=== PATIENT | male | born 1965 | race African-American/Black ===

== ENCOUNTER 2018-08-18 07:02 | Observation (INO) | payer OTHER ==
--- NOTE | 2018-08-09 13:47 | HP ---
HISTORY AND PHYSICAL: DATE OF ADMISSION/SURGERY: 08/18/18 DATE OF OFFICE VISIT: 08/05/18 SURGEON: Diane Garcia MD * (DICTATED BY MARIA DE JESUS URIOSTEGUI) PROCEDURE: Left total knee arthroplasty. CHIEF COMPLAINT: Left knee pain. HISTORY OF PRESENT ILLNESS: Mr. Crabtree is a 53-year-old gentleman with end- stage osteoarthritis of the left knee. He has failed conservative treatment and elected to proceed with a left total knee arthroplasty. PAST MEDICAL HISTORY: Hypertension. PAST SURGICAL HISTORY: ACL reconstruction of the left knee and lumbar laminectomy. CURRENT MEDICATIONS: Lisinopril 5 mg a day. ALLERGIES: No known drug allergies. FAMILY HISTORY: Denies. SOCIAL HISTORY: He is a 53-year-old gentleman, lives with his . He does not smoke or use drugs. He uses alcohol occasionally. REVIEW OF SYSTEMS: A complete 14-point review of systems is reviewed with the patient and is all negative or noncontributory. Denies history of DVT, PE, hepatitis, HIV, or anesthesia problems. PHYSICAL EXAMINATION GENERAL: He is well developed, well nourished, in no acute distress. VITAL SIGNS: He stands 5 feet and 11 inches tall, weighs 230 pounds, blood pressure is 154/94, heart rate is 80. HEENT: Normocephalic, atraumatic. NECK: Supple. No palpable lymph nodes. PULMONARY: The lungs are clear to auscultation bilaterally. CARDIAC: Regular rate and rhythm. Strong S1 and S2. ABDOMEN: Soft, nontender, and nondistended. NEUROLOGICAL: He is alert and oriented x3. MUSCULOSKELETAL: Left lower extremity: The skin is intact. There are no open wounds or abrasions. There is moderate effusion of the left knee. There is a 10- degree valgus deformity. Range of motion 5 to 120 degrees of flexion. Tenderness over the medial and lateral joint line. He is able to dorsiflex and plantar flex. Has a 2+ dorsalis pedis pulse and intact sensation. ASSESSMENT AND PLAN: Mr. Crabtree is a 53-year-old gentleman with end-stage osteoarthritis of the left knee. He has failed conservative treatment and elected to proceed with a left total knee arthroplasty. The surgery is scheduled for 08/18/[address] Garcia discussed the risks and benefits of the surgery at today's visit and all of his questions were answered. He will follow up with Dr. Garcia 2 weeks after the surgery. MARIA DE JESUS URIOSTEGUI [id number]/[facility] #: [id number] MTDD
[~2018-08-18 07:02] MED LIST: Dexamethasone TAB* 4 MG PO ONE; DiMENhydriNATE IV* 50 MG/ML VIAL IV PUSH PRN; Famotidine IV* 10 MG/ML 2 ML (20 mg) IV ONE; HYDROmorphone INJ1* 1 MG/ML SYRINGE IV PRN; Lactated Ringers 1000 ML Bag* 1,000 ML IV SCH; Naloxone* 0.4 MG/ML 1 ML VIAL IV PRN; PROCHLORPERAZINE INJ 5 MG/ML 2 ML VIAL IV PRN; Scopolamine 1.5 mg* PATCH TRANSDERM PRN; Tranexamic Acid 1,000 MG in NS 0.9% 50 ML* (outpatient use) IV SCH; fentaNYL* 50 MCG/ML 2 ML VIAL (100 MCG VIAL) IV PRN; oxyCODONE/Acetamin 5/325 MG* TAB PO PRN
[2018-08-18] MEDS ORDERED: fentaNYL* 50 MCG/ML 2 ML VIAL (100 MCG VIAL) ONE (07:42)
[2018-08-18] MEDS ORDERED: KETAMINE HCL* 50 MG/ML 10 ML VIAL ONE (07:42)
[2018-08-18] MEDS ORDERED: Midazolam* 1 MG/ML 5 ML VIAL (5 MG) ONE ×2 (07:43→08:45)
[2018-08-18] MEDS ORDERED: Propofol* 10 MG/ML 20 ML BTL ONE (07:48)
[2018-08-18] MEDS ORDERED: Lidocaine 2% PF * 5 ML VIAL ONE ×2 (07:49→12:17)
[2018-08-18] MEDS ORDERED: Ondansetron ODT TAB* 4 MG ONE (08:04)
[2018-08-18] MEDS ORDERED: Gabapentin CAP(*) 300 MG ONE (08:04)
[2018-08-18] MEDS ORDERED: ceFAZolin 2 GM PREMIX in ORs 2 GM/50 ML BAG IVPB ONE (08:05)
[2018-08-18] MEDS ORDERED: Famotidine IV* 10 MG/ML 2 ML (20 mg) ONE (08:05)
[2018-08-18] MEDS ORDERED: Dexamethasone TAB* 4 MG ONE (08:05)
[2018-08-18] MEDS: Buffered Lidocaine 1% SYRIN* 1 ML/SYRINGE INTRADERM ONE ×2 (08:18→14:25)
[2018-08-18] MEDS: Ondansetron TAB* 4 MG PO ONE ×2 (08:18→14:25)
[2018-08-18] MEDS ORDERED: Gabapentin CAP(*) 300 MG PO ONE (09:00)
[2018-08-18] MEDS ORDERED: ROPIVACAINE 5 MG/ML 30 ML BTL (0.5%) ONE (10:04)
[2018-08-18] MEDS ORDERED: Bupivacaine 0.25% SDV PF* 10 ML VIAL INJ ONE (12:16)
[2018-08-18] MEDS ORDERED: Bupivacaine 0.5% SDV PF* 30ML VIAL ONE (12:16)
[2018-08-18] MEDS ORDERED: Propofol* 1,000 MG/100 ML BTL ONE (12:17)
[2018-08-18] MEDS ORDERED: Phenylephrine 10 MG/ML VIAL* 1 ML VIAL ONE (12:17)
[2018-08-18] MEDS ORDERED: Ketorolac INJ* 30 MG/ML 1 ML VIAL ONE (12:39)
[2018-08-18] MEDS ORDERED: Polyethylene Glycol 3350* 17 GM PACKET PO PRN (12:58)
[2018-08-18] MEDS ORDERED: oxyCODONE/Acetamin 5/325 MG* TAB PO PRN (12:58)
[2018-08-18] MEDS ORDERED: Ondansetron TAB* 4 MG PO PRN (12:58)
[2018-08-18] MEDS ORDERED: diPHENhydraMINE IV* 50 MG/ML 1 ml VIAL (BENADRYL) IV PRN (12:58)
[2018-08-18] MEDS ORDERED: Magnesium Hydroxide LIQ* 30 ML UDC PO PRN (12:58)
[2018-08-18] MEDS ORDERED: Morphine 4 MG/ML VIAL (1 ml) 4 MG/ML VIAL IV PRN (12:58)
[2018-08-18] MEDS ORDERED: Bisacodyl SUPP* 10 MG SUPP PR PRN (12:58)
[2018-08-18] MEDS ORDERED: Ondansetron INJ* 2 MG/ML VIAL IV PRN (12:58)
[2018-08-18] MEDS: Lactated Ringers 1000 ML Bag* 1,000 ML IV SCH ×2 (14:24→23:52)
[2018-08-18] MEDS: Acetaminophen TAB* 325 MG PO SCH ×2 (14:33→23:30)
--- NOTE | 2018-08-18 15:23 | CONS ---
HOSPITAL MEDICINE CONSULTATION REPORT: DATE OF CONSULT: 08/18/18 PROVIDER: Pam Fink NP ATTENDING PHYSICIAN: Dr. Garcia.* CONSULTING PHYSICIAN: Dr. Gilda Ignacio (dictated by Pam Fink NP). REASON FOR CONSULT: Co-management of chronic medical conditions. HISTORY OF PRESENT ILLNESS: Mr. Crabtree is a 53-year-old male with a past medical history significant for hypertension, who presented to [facility] for an elective left total knee arthroplasty with Dr. Garcia. Please see dictated H and P from MARIA DE JESUS Blankenship, for complete details. In brief, the patient had ongoing pain and failed conservative measures; therefore, opted for a left total knee arthroplasty with Dr. Garcia. In the immediate postoperative period, the patient has no complaints. Hospital Medicine was asked to consult regarding co-management of his chronic medical condition of hypertension. PAST MEDICAL HISTORY: 1. Hypertension. 2. Osteoarthritis. PAST SURGICAL HISTORY: 1. Laminectomy x2. 2. ACL repair of the left knee. HOME MEDICATIONS: Lisinopril 5 mg p.o. daily. ALLERGIES: No known drug allergies. FAMILY HISTORY: Mom and dad both with a history of hypertension. No reported history of diabetes or cancer. SOCIAL HISTORY: The patient denies tobacco or illicit drug use. Reports occasional alcohol use. Surrogate decision maker in the event he is unable to make his own decisions is his , Toña Crabtree. He is a full code. REVIEW OF SYSTEMS: The patient denies any fever, chills, unintended weight loss. Denies any cough, congestion, hemoptysis, or shortness of breath. Denies any chest pain. Denies any abdominal pain, nausea, vomiting, diarrhea, dysuria , or urinary frequency. PHYSICAL EXAM: General: At this time, Mr. Crabtree is alert and oriented, resting on the stretcher in PACU. He is in no acute distress. Vital Signs: Blood pressure 134/97, heart rate is 70, respirations 16, O2 saturation 96%, temperature was 96.8. HEENT: Head is atraumatic, normocephalic. Eyes: EOMs are intact. Sclerae anicteric and not pale. Oral mucosa appeared to be moist. Neck is supple. Lungs are clear to auscultation bilaterally. No wheezes, rales , or rhonchi. Cardiac: S1, S2. Regular rate and rhythm. No murmurs, rubs, or gallops. Abdomen is soft and nontender. Bowel sounds are present x4. Extremities: He does have limited range of motion of his left lower extremity. Pedal pulses are +2 bilaterally. Sensation is intact. Skin: He does have a dressing that is dry and intact to his left knee. Neurologic: He is awake, alert, and oriented x3. Speech is clear. Thought process is intact. There are no gross focal deficits. DIAGNOSTIC STUDIES/LAB DATA: INR was 1.03. CMP from 06/09/17: Sodium 138, potassium 4.2, chloride 98, carbon dioxide was 27, glucose was 106, BUN was 24, creatinine 0.8, calcium 9.3. ASTs were 16, ALTs were 17, alkaline phosphatase was 65. CBC from same date: WBCs were 4.7, RBCs 4.34, hemoglobin 13.7, hematocrit was 41, platelet count was 352. ASSESSMENT AND PLAN: Mr. Crabtree is a 53-year-old male with a past medical history significant for hypertension, who presented to [facility] for an elective left total knee arthroplasty with Dr. Garcia. In the immediate postoperative period, the patient has no complaints. Our recommendations are as follows: 1. Status post left total knee arthroplasty. Management per Orthopedics. PT/ OT per Orthopedics. DVT prophylaxis per Orthopedics. Bowel regimen per Orthopedics. 2. Hypertension. I would continue on his lisinopril 5 mg p.o. daily as previously prescribed. 3. DVT prophylaxis: Per Orthopedics. 4. Diet: He can have a regular diet. 5. Code status: He is a full code. TIME SPENT: Time spent on this consultation was 45 minutes; greater than half that time was spent at the bedside reviewing events leading thus far to his hospitalization, performing physical exam, and reviewing my plan of care. I have discussed with my attending, Dr. Gilda Ignacio; she is in agreement with my plan. At this time, we will continue to follow from afar. If further management is needed of his blood pressure, please do not hesitate to contact us. Thank you for involving us in the care of this patient. PAM FINK, FISH SEINER [id number]/[facility] #: [id number] GINNY
--- NOTE | 2018-08-18 16:58 | PN ---
Progress Note - Progress Note Date of Service: 08/18/18 Note: OOB to chair resting comfortably with no complaints, able to dorsi flex/plantar flex, 2+ DP pulse, intact sensation; dressing c/d/i
[2018-08-18] MEDS: ceFAZolin 1 GM ADVAN(*) 1 GM in NS 0.9% 50 ML* 50 ML IVPB SCH (17:33)
[2018-08-18] MEDS: oxyCODONE TAB* 5 MG TAB PO PRN ×2 (18:37→23:30)
--- NOTE | 2018-08-18 18:52 | OP ---
Operative Report - Blank - Operative Report Date of Operation: 08/18/18 Note: MAHOGANY SCHNEIDER 1965 Date of Surgery: 08/18/18 Diane Garcia MD Log Chain Worker: Nina PRETTY did help throughout the procedure with preparation of the knee, wound retraction, manipulation of the knee, and wound closure. Anesthesiologist: Dr. Galarza Anesthesia Type: Spinal Preoperative Diagnosis: Left severe degenerative osteoarthritis of the knee Postoperative Diagnosis: As above Procedure Performed: Left Total Knee Arthroplasty Tourniquet time: 99 minutes Complications: None Specimen: Bone and cartilage from the left knee joint sent to pathology. Also multiple culture swabs sent to microbiology. Hardware Used: Cemented [employer] total knee hardware was used - For the femur a size 7 left oxinium legion posterior stabilized femoral component, for the tibia a size 6 left rossy II tibial baseplate, for the insert a size 9 mm 5-6 posterior stabilized articular polyethylene insert, and for the patella a size 35 3-peg all poly patella. [employer] robotics were used for this surgery. 4 pins were placed and removed at the end of the case. Brief History/Indication: MAHOGANY SCHNEIDER was known in clinic and had a history of severe left knee pain and swelling. He had a history of multiple ligament injuries in the past and acl reconstruction. He failed conservative treatment with anti-inflammatories, pain pills, intra-articular injections and physical therapy. He elected to undergo left total knee arthroplasty due to continued pain and decreased quality of life. Radiographs showed severe end stage osteoarthritis of the knee with bone on bone contact. Informed consent was obtained from the patient. He understood the risks of surgery included but were not limited to: bleeding, infection, damage to nearby structures, intraoperative fracture, nerve palsy, failure of the hardware, early loosening, knee stiffness or loss of motion, anesthesia complications, stroke, heart attack , blood clot and . He wished to proceed. Intra-Operative Findings: Intraoperatively the patient was noted to have severe loss of cartilage in all 3 compartments of the knee. Description of the Procedure: MAHOGANY SCHNEIDER was identified in the preanesthesia unit. His left knee was marked as the correct operative side. Informed consent was signed and placed in the chart. The patient was taken to the operating room and placed under anesthesia without complication. A mendez catheter was placed. A tourniquet was placed on the left thigh. The left lower extremity was prepped and draped in the usual sterile fashion. Preoperative time-out was made to correctly identify the patient, side and site. Appropriate intraoperative antibiotics were given within one hour of incision. Tourniquet was inflated. A midline incision was made and carried sharply down to the extensor mechanism. A new 10 blade was used to make a standard medial parapatellar arthrotomy. The patella was subluxed laterally. Electrocautery was used to dissect soft tissue off the superomedial tibia to the midsagittal plane. The knee was flexed up. The anterior horn of the lateral meniscus and the ACL/PCL were sharply incised. A drill was used to place two 4mm pins in the tibia and two in the femur. The navio arrays were placed and the knee was mapped using the [employer] robotics checkpoints and algorithms. The implants were chosen to be a size 7 femur and a size 6 tibia. The gaps were well balanced. The robotic handpiece was used to elver the distal femur. The external rotation pin sites were marked according to the navio points. The size 7 multi-cutting jig was pinned on the distal femur. The oscillating saw was used to make the appropriate 4 chamfer cuts. The robotic handpiece was used to make two tibial peg holes. The extramedullary tibial cutting guide was pinned on the proximal tibia and the oscillating saw was used to make the proximal tibial cut perpendicular to the mechanical axis of the tibia. The bone was carefully removed. The knee was brought out into full extension. The spacer block was placed and had excellent fit with the knee in full extension. The medial and lateral ligaments were well balanced. The flexion and extension gaps were well balanced. The knee was flexed up. Lamina box toe cementer was placed both medially and laterally. Any remaining meniscus was removed with electrocautery. Curved osteotome was used to remove any posterior osteophytes. The tibial tray and drop mitra were placed and confirmed a satisfactory tibial cut. The size 7 left femoral trial was impacted onto the distal femur. This trial had excellent fit and stability. The box for the posterior stabilized implant was prepared using a box cut osteotome and a reamer. Next a tibial tray trial and 9 mm insert trial was placed. The knee was taken through a range of motion and had full extension to 130 degrees of flexion. Patellofemoral tracking was satisfactory. Final checkpoints on the navio confirmed satisfactory cuts and implant placement with good balancing throughout range of motion. The patella was inverted and sized to a size 35. Three peg holes were drilled through the size 35 drill guide. The trial patella was placed and the knee was taken through a range of motion. There was satisfactory patellofemoral tracking. All trials were removed. The tibia was subluxed anteriorly and sized to a size 6. The proximal tibial was prepared with a size 6 keel punch. All bony cut surfaces were irrigated with sterile saline and dried. Final implants were cemented into place starting with the tibia, followed by the femur, and last the patella. A 9 mm insert trial was placed and the knee was brought into full extension. The two checkpoint screws and the 4 pins were all removed. Tourniquet was turned down and the knee was copiously irrigated with sterile saline. Electrocautery was used to obtain meticulous hemostasis. Once the cement had fully cured, the insert trial was removed. Any excess cement was removed from around the hardware and capsule. Final insert chosen was a 9 mm posterior stabilized Rossy II articular insert size 5-6. Stability of the insert was checked and noted to be stable. The extensor mechanism was closed using number 1 vicryls. The rest of the incision was closed in a layered fashion using 0 and 2-0 vicryls. The skin for the midline incision and all 4 pin site incisions were closed using 3-0 nylon suture. Sterile xeroform, 4x4s and webril were used to cover the incision. Parviz wrap and cold pack were used to cover the dressings. The patients anesthesia was reversed without difficulty. He was taken to the PACU in stable condition. Intended weight-bearing will be as tolerated.
[2018-08-18] MEDS: Docusate CAP* 100 MG PO SCH (21:19)
[2018-08-18] MEDS: Cyclobenzaprine TAB* 10 MG PO PRN (21:19)
[2018-08-18] MEDS: traMADol TAB* 50 MG PO PRN (21:19)
[2018-08-18] MEDS: Magnesium Hydroxide LIQ* 30 ML UDC PO SCH (21:19)
[2018-08-19] MEDS: ceFAZolin 1 GM ADVAN(*) 1 GM in NS 0.9% 50 ML* 50 ML IVPB SCH ×2 (02:20→09:49)
[2018-08-19] MEDS: traMADol TAB* 50 MG PO PRN (04:13)
[2018-08-19] MEDS: oxyCODONE TAB* 5 MG TAB PO PRN ×2 (06:21→11:54)
[2018-08-19] MEDS: Acetaminophen TAB* 325 MG PO SCH ×2 (06:27→12:32)
[2018-08-19 06:43] LABS: Hematocrit 34 % (42-52); Hemoglobin 11.4 g/dL (14.0-18.0); Platelet Count 305 10^3/uL (150-450)
[2018-08-19 06:53] LABS: BUN/Creatinine Ratio 9.5 (8-20); Calcium 8.4 mg/dL (8.6-10.3); EGFR Non-African American 60.3 (>60); Potassium 3.9 mmol/L (3.5-5.0)
[2018-08-19] MEDS: Docusate CAP* 100 MG PO SCH (08:24)
[2018-08-19] MEDS: Magnesium Hydroxide LIQ* 30 ML UDC PO SCH (08:24)
[2018-08-19] MEDS: Cyclobenzaprine TAB* 10 MG PO PRN (08:24)
[2018-08-19] MEDS: oxyCODONE/Acetamin 5/325 MG* TAB PO PRN ×2 (08:51→14:39)
[2018-08-19] MEDS ORDERED: Apixaban* 2.5 MG TAB PO SCH (09:00)
[2018-08-19] MEDS ORDERED: Lisinopril TAB* 5 MG PO SCH (09:00)
--- NOTE | 2018-08-19 11:22 | PN ---
Subjective Date of Service: 08/19/18 Interval History: Pt seen and examined. Meds and labs reviewed. CC: N/A ROS: Denied ARELLANO/dizziness, F/C, N/V, CP, SOB, increased cough, sputum production , abd pain, diarrhea, constipation, dysuria, myalgias, arthralgias, throat pain , and new skin lesions. The rest of the 14 point ROS are unremarkable. PHYSICAL EXAM: GEN APPEARANCE: Awake, not in acute distress HEENT: NC/AT, PERRLA, moist oral mucosa, (-) throat erythema NECK: Soft, supple, (-) cervical LAD, (-)JVD HEART: S1S2 WNL, RRR, No MRG CHEST: CTA, BL, GAE, No W/R/R ABD: Soft, ND/NT, NABS 4x Q EXT: No C/C/LLE, wrapped in MICK, cdi SKIN: Warm to touch PSYCH: No active psychosis, hallucinations, depression, SI/HI Objective Active Medications: Acetaminophen (Tylenol Tab*) 975 mg PO Q8H [facility] Last Admin: 08/19/18 06:27 Dose: Not Given Apixaban (Eliquis*) 2.5 mg PO BID [facility] Last Admin: 08/19/18 08:24 Dose: 2.5 mg Bisacodyl (Dulcolax Supp*) 10 mg ME DAILY PRN PRN Reason: constipation Cyclobenzaprine HCl (Flexeril Tab*) 10 mg PO TID PRN PRN Reason: SPASMS Last Admin: 08/19/18 08:24 Dose: 10 mg Diphenhydramine HCl (Benadryl Iv*) 12.5 mg IV Q6H PRN PRN Reason: PRURITIS Docusate Sodium (Colace Cap*) 100 mg PO BID [facility] Last Admin: 08/19/18 08:24 Dose: 100 mg Lactulose (Lactulose*) 30 ml PO Q6H PRN PRN Reason: constipation Lisinopril (Prinivil Tab*) 5 mg PO QAM [facility] Last Admin: 08/19/18 08:24 Dose: 5 mg Magnesium Hydroxide (Milk Of Magnesia Liq*) 30 ml PO BID [facility] Last Admin: 08/19/18 08:24 Dose: 30 ml Magnesium Hydroxide (Milk Of Magnesia Liq*) 30 ml PO Q6H PRN PRN Reason: constipation Morphine Sulfate (Morphine 4 Mg/Ml Vial (1 Ml)) 2 mg IV Q2H PRN PRN Reason: PAIN Ondansetron HCl (Zofran Inj*) 4 mg IV Q6H PRN PRN Reason: nausea Ondansetron HCl (Zofran Tab*) 4 mg PO Q6H PRN PRN Reason: NAUSEA Oxycodone HCl (Roxycodone Tab*) 10 mg PO Q4H PRN PRN Reason: SEVERE PAIN Last Admin: 08/19/18 06:21 Dose: 10 mg Oxycodone/Acetaminophen (Percocet 5/325 Tab*) 1 tab PO Q4H PRN PRN Reason: PAIN Last Admin: 08/18/18 17:37 Dose: 1 tab Oxycodone/Acetaminophen (Percocet 5/325 Tab*) 2 tab PO Q4H PRN PRN Reason: PAIN Last Admin: 08/19/18 08:51 Dose: 2 tab Polyethylene Glycol/Electrolytes (Miralax*) 17 gm PO DAILY PRN PRN Reason: Constipation Tramadol HCl (Ultram*) 50 mg PO Q6H PRN PRN Reason: PAIN Last Admin: 08/19/18 04:13 Dose: 50 mg Vital Signs - 8 hr 08/19/18 08/19/18 08/19/18 03:42 04:13 04:15 Temperature 98.2 F Pulse Rate 66 Respiratory 16 16 16 Rate Blood Pressure 148/75 (mmHg) O2 Sat by Pulse 95 Oximetry 08/19/18 08/19/18 08/19/18 06:21 06:22 07:13 Temperature 98.2 F Pulse Rate 69 Respiratory 16 16 16 Rate Blood Pressure 142/75 (mmHg) O2 Sat by Pulse 97 Oximetry 08/19/18 08/19/18 08/19/18 08:00 08:04 08:24 Temperature 98.1 F Pulse Rate 73 Respiratory 18 18 18 Rate Blood Pressure 129/72 (mmHg) O2 Sat by Pulse 98 98 Oximetry 08/19/18 08/19/18 08/19/18 08:25 08:51 10:37 Temperature Pulse Rate Respiratory 18 18 18 Rate Blood Pressure (mmHg) O2 Sat by Pulse Oximetry 08/19/18 10:41 Temperature Pulse Rate Respiratory 18 Rate Blood Pressure (mmHg) O2 Sat by Pulse Oximetry Oxygen Devices in Use Now: None Result Diagrams: 08/19/18 06:10 08/19/18 06:09 Microbiology and Other Data: Microbiology 08/18/18 10:00 Gram Stain - Final Knee Left Assess/Plan/Problems-Billing Assessment: - Patient Problems (1) Osteoarthritis Current Visit: Yes Status: Acute Code(s): M19.90 - UNSPECIFIED OSTEOARTHRITIS, UNSPECIFIED SITE SNOMED Code(s): 893829938 Comment: -Left-knee, end-stage -S/P L. TK arthroplasty POD #1 -Defer further input from ortho/PT (2) HTN (hypertension) Current Visit: Yes Status: Acute Code(s): I10 - ESSENTIAL (PRIMARY) HYPERTENSION SNOMED Code(s): 45891122 Comment: -Well controlled -Continue Lisinopril (3) DVT prophylaxis Current Visit: Yes Status: Acute Code(s): Z29.9 - ENCOUNTER FOR PROPHYLACTIC MEASURES, UNSPECIFIED SNOMED Code(s): 347443197 Comment: -Continue Eliquis Status and Disposition: -Defer w/Ortho
--- NOTE | 2018-08-19 11:32 | PN ---
Progress Note - Progress Note Date of Service: 08/19/18 SOAP: Subjective: OOB to chair with no complaints, moderate pain, controlled with current pain regimen Objective: Vital Signs Temp Pulse Resp BP Pulse Ox 98.1 F 73 18 129/72 98 08/19/18 08:04 08/19/18 08:04 08/19/18 10:41 08/19/18 08:04 08/19/18 08:04 Laboratory Last Values Hgb 11.4 g/dL (14.0-18.0) L 08/19/18 06:10 Hct 34 % (42-52) L 08/19/18 06:10 Plt Count 305 10^3/uL (150-450) 08/19/18 06:10 MPV 6.0 fL (7.4-10.4) L 08/19/18 06:10 Sodium 136 mmol/L (135-145) 08/19/18 06:09 Potassium 3.9 mmol/L (3.5-5.0) 08/19/18 06:09 Chloride 105 mmol/L (101-111) 08/19/18 06:09 Carbon Dioxide 26 mmol/L (22-32) 08/19/18 06:09 Anion Gap 5 mmol/L (2-11) 08/19/18 06:09 BUN 12 mg/dL (6-24) 08/19/18 06:09 Creatinine 1.26 mg/dL (0.67-1.17) H 08/19/18 06:09 Est GFR ( Amer) 73.0 (>60) 08/19/18 06:09 Est GFR (Non-Af Amer) 60.3 (>60) 08/19/18 06:09 BUN/Creatinine Ratio 9.5 (8-20) 08/19/18 06:09 Glucose 111 mg/dL (70-100) H 08/19/18 06:09 Calcium 8.4 mg/dL (8.6-10.3) L 08/19/18 06:09 incision: c/d/i PE: NVI Assessment: s/p Left TKA Plan: 1) PT/OT-WBAT 2) Eliquis for DVT prophylaxis 3) Home today; F/U with Jose in 2 weeks
[2018-08-19 11:36] VITALS: BP 120/75
--- NOTE | 2018-08-19 13:54 | DS ---
DISCHARGE SUMMARY: DATE OF ADMISSION: 08/18/18 DATE OF DISCHARGE: 08/19/18 SURGEON: Diane Garcia MD.* (DICTATED BY MARIA DE JESUS URIOSTEGUI) PRINCIPAL DIAGNOSIS: Severe left knee osteoarthritis. DISCHARGE DIAGNOSIS: Severe left knee osteoarthritis. HISTORY OF PRESENT ILLNESS: Mr. Crabtree is a 53-year-old gentleman with endstage osteoarthritis of the left knee, failed conservative treatment and elected to proceed with a left total knee arthroplasty. HOSPITAL COURSE: Mr. Crabtree was admitted electively to the hospital on and underwent a NAVIO-assisted left total knee arthroplasty, tolerated the procedure well without complications. Postoperatively, he was placed on Eliquis for DVT prophylaxis. On postoperative day #1, his H and H was 11.4 and 34. His vital signs remained stable. He did well with physical therapy and he was discharged home on discharge medications. He was given Percocet 5/325 mg to take one to two every 4 to 6 hours as needed for pain, Eliquis 2.5 mg twice a day for 30 days, Colace 100 mg tablets one to three daily as needed for constipation and lisinopril 5 mg daily. PHYSICAL EXAMINATION UPON DISCHARGE: He was afebrile. His vital signs were stable. He was ambulating well with aid of a walker. He was able to dorsiflex and plantar flex and 2+ dorsalis pedis pulse and intact sensation. DISCHARGE DISPOSITION: He was discharged home in stable condition. DISCHARGE PLAN: He was discharged home. He was given Percocet for pain, Eliquis twice a day for DVT prophylaxis, he was asked to take this for 30 days. He can start taking shower on Wednesday. He can let the soap and water run over the incision and pat the area dry. He is weightbearing as tolerated and follow up with Dr. Garcia in clinic in two weeks. MARIA DE JESUS URIOSTEGUI [id number]/[facility] #: [id number] MTDD
[2018-08-21] MEDS ORDERED: Scopolamine PATCH Remove* 1 NOTE MISC PATCH OFF ONE (05:50)
== END 2018-08-19 15:40 | disposition home or self-care (01) ==
LOC: OR 07:02 → EDSTATUS 07:30 → SSU 14:09
PROVIDERS: ADMIT Orthopaedic Surgery Adult Reconstructive Orthopaedic Surgery; ATTEND Orthopaedic Surgery Adult Reconstructive Orthopaedic Surgery
DX: M17.12 Unilateral primary osteoarthritis, left knee (principal); I10 Essential (primary) hypertension; M25.562 Pain in left knee; E78.2 Mixed hyperlipidemia; Z79.01 Long term (current) use of anticoagulants
CPT/HCPCS: 36415; 80048; 85014; 85018; 85049; 87070; 87073; 87205; 96374; A9270-GY; C1776; G0378; J0690; J1885; J2250; J2270; J2704; J2795; J3010; J3490; J8540

== ENCOUNTER 2019-04-24 09:34 | Day surgery (SDC) | payer OTHER ==
[~2019-04-24 09:34] MED LIST changes: +Buffered Lidocaine 1% SYRIN* 1 ML/SYRINGE INTRADERM ONE; +Bupivacaine 0.25% EPI 200,000* 30 ML SDV ONE; +Bupivacaine 0.25% SDV* 30 ML ONE; +Dexamethasone TAB* 4 MG ONE; +Famotidine IV* 10 MG/ML 2 ML (20 mg) ONE; +Ondansetron ODT TAB* 4 MG ONE; +Ondansetron ODT TAB* 4 MG PO ONE; +Ropivacaine 0.2% * 2 MG/ML VIAL ONE; -Scopolamine 1.5 mg* PATCH TRANSDERM PRN; -Tranexamic Acid 1,000 MG in NS 0.9% 50 ML* (outpatient use) IV SCH; +oxyCODONE TAB* 5 MG TAB PO PRN; -oxyCODONE/Acetamin 5/325 MG* TAB PO PRN
[2019-04-24] MEDS ORDERED: ceFAZolin 2 GM PREMIX in ORs 2 GM/50 ML BAG ONE (09:48)
[2019-04-24] MEDS ORDERED: fentaNYL* 50 MCG/ML 2 ML VIAL (100 MCG VIAL) ONE (09:48)
[2019-04-24] MEDS ORDERED: KETAMINE HCL* 50 MG/ML 10 ML VIAL ONE (09:48)
[2019-04-24] MEDS ORDERED: Midazolam* 1 MG/ML 5 ML VIAL (5 MG) ONE (09:48)
[2019-04-24] MEDS ORDERED: Acetaminophen IV 1GM/100ML * 100 ML ONE (11:05)
[2019-04-24] MEDS ORDERED: Ketorolac INJ* 30 MG/ML 1 ML VIAL ONE (11:05)
[2019-04-24] MEDS ORDERED: Propofol* 10 MG/ML 20 ML BTL ONE (11:05)
[2019-04-24] MEDS ORDERED: Phenylephrine 40 MCG/ML SYRINGE ONE (11:13)
[2019-04-24] MEDS ORDERED: Labetalol IV* 5 MG/ML 20 ML VIAL ONE (12:08)
[2019-04-24] MEDS ORDERED: hydrALAZINE IV* 20 MG/ML VIAL ONE (12:08)
[2019-04-24 13:53] VITALS: BP 124/77
--- NOTE | 2019-05-01 23:25 | OP ---
DATE OF OPERATION: 04/24/19 - [facility] DATE OF : 69 SURGEON: Roger Oneil MD IMITATION MARBLE MECHANIC: MARIA DE JESUS Angulo. An assistant tennis coach was needed for the entirety of the case to help with positioning, retraction, and was utilized throughout all portions of the case. ANESTHESIA: Dr. Galarza. ANESTHESIA: General, interscalene block. PRE-OP DIAGNOSIS: Right shoulder high grade partial thickness tear of the rotator cuff with acromioclavicular joint arthritis and bicipital tendonitis. POST-OP DIAGNOSES: Right shoulder high grade partial thickness tear of the rotator cuff with acromioclavicular joint arthritis and bicipital tendonitis. OPERATIVE PROCEDURE: Right shoulder arthroscopy: 1. Extensive glenohumeral debridement. 2. Subacromial decompression with acromioplasty. 3. Distal clavicle excision. 4. Rotator cuff repair using REGENETEN patch. 5. Subpectoral biceps tenodesis. COMPLICATIONS: None. ESTIMATED BLOOD LOSS: Minimal. ANCHORS USED: Q-Fix 2.8 mm and 1 REGENETEN patch, type large. COMPLICATIONS: None. ESTIMATED BLOOD LOSS: Minimal. INDICATIONS: Oliver Crabtree is a 54-year-old male with persistent shoulder pain. He is refractory to conservative management here with AC joint arthritis, bicipital tendonitis, and partial thickness tearing of the rotator cuff. After extensive discussion of risks and benefits of operative versus nonoperative treatment, he elected to proceed with surgical treatment. He has failed conservative treatment. DESCRIPTION OF PROCEDURE: The patient was greeted in the preoperative area by the attending surgeon. Correct extremity was marked and consent was confirmed. The patient underwent interscalene nerve block by the anesthesiologist after which he was brought back to the operating suite where he was placed in supine position on the operating table, then he underwent general anesthesia and endotracheal intubation. He was then placed in the left lateral decubitus position where all bony prominences were padded secured with a pegboard. The right arm was draped unsterile with 10 pounds of traction. Right shoulder was then prepped and draped in the usual sterile fashion beginning with chlorhexidine soap, scrub, and alcohol wipe and a final prep of ChloraPrep. After appropriate surgical pause indicating site, side, procedure, and administration of antibiotics, standard posterior lateral portal was made sharply with #11 blade. Scope was introduced into the joint. There were grade 0 to 1 changes of glenohumeral joint. There is evidence of a type 2 superior labral tear, which was debrided back using the shaver. The biceps were then tenotomized for later tenodesis. The major of the glenohumeral joint was grade 0 to 1 changes. The inferior recess was intact. There was no tearing of the subscap. The undersurface of the supraspinatus had some partial tearing with unstable flap, this was debrided back using a shaver. The anterior and posterior labrum had fraying, partial tearing, which was debrided back using the shaver after the intra-articular work was completed attention was directed to subacromial space. Scope was introduced into the subacromial space. Lateral portal was made in an outside fashion. There is abundant synovitis and bursa that was present. The shaver was used to debride back the synovitis and bursitis. There was an anterolateral spur that was debrided back using 4-0 oval elver. The CA ligament was peeled back. Once this was completed, attention was directed to the AC joint. There was abundant stenosis that was present. The elver was brought through the anterior portal and the distal 8 mm of clavicle was then removed. Care was taken to prevent any damage to the CC ligaments. Once this was completed, attention was directed to the subacromial space. All loose debris and tissue was thoroughly removed and lavaged. There was partial- thickness tearing of the undersurface and the bursal side had mild fraying therefore the decision was made to proceed with a REGENETEN patch. A size large REGENETEN patch was then brought to the field and secured medially with tendon holli through a separate stab incision and then laterally with PEEK holli. After this was completed, attention was directed to the biceps. The bed was air planed to the right side. The anterior aspect of the shoulder was prepped using ChloraPrep, a #15 blade used to make incision in line with the biceps tendon and the inferior aspect of the pec. The soft tissue carefully dissected bluntly and the pec was identified and elevated. The groove was palpated and then the biceps were then brought through the groove. There is abundant tenosynovitis and tendinosis that is present. The groove was then prepared in usual fashion using electrocautery device, red ball rasp and osteotome. The Q-Fix guide was then used to drill cortically and then the Q- Fix was deployed with excellent purchase. The sutures were then passed through the tendon in Sergio-Francis type configuration. The excess stump was excised. The biceps was shoveled back to the wound, the wounds were then copiously irrigated with sterile saline. The anterior wound was closed with 3-0 Monocryl in layers, the portals closed with 3-0 nylon. Sterile dressings were applied, a Cryo/Cuff and UltraSling were applied. He was awoken from anesthesia and transferred to PACU in stable condition. POSTOPERATIVE PLAN: He will be nonweightbearing. He will be discharged on pain medication. DVT prophylaxis was considered, but deferred due to no previous personal or family history. I will see the patient back in 10 to 14 days. [id number]/CPS #: [id number] [email or web address]
== END 2019-04-24 13:50 | disposition home or self-care (01) ==
LOC: OREAST 09:34
PROVIDERS: ATTEND Orthopaedic Surgery
DX: M75.111 Incomplete rotator cuff tear or rupture of right shoulder, not specified as traumatic (principal); M75.21 Bicipital tendinitis, right shoulder; M19.211 Secondary osteoarthritis, right shoulder; I10 Essential (primary) hypertension; G89.18 Other acute postprocedural pain
CPT/HCPCS: A9270-GY; C1713; C1776; J0360; J0690; J1885; J2250; J2704; J2795; J3010; J3490; J8540

== ENCOUNTER 2023-11-05 08:18 | Observation (INO) ==
[~2023-11-05 08:18] MED LIST changes: +Acetaminophen IV 1 GM/100ML 1,000 MG/100 ML BAG IV ONE; +Buffered Lidocaine 1% SYRIN 1 ml INTRADERM ONE; -Buffered Lidocaine 1% SYRIN* 1 ML/SYRINGE INTRADERM ONE; -Bupivacaine 0.25% EPI 200,000* 30 ML SDV ONE; -Bupivacaine 0.25% SDV* 30 ML ONE; -Dexamethasone TAB* 4 MG ONE; -Dexamethasone TAB* 4 MG PO ONE; -DiMENhydriNATE IV* 50 MG/ML VIAL IV PUSH PRN; -Famotidine IV* 10 MG/ML 2 ML (20 mg) IV ONE; -Famotidine IV* 10 MG/ML 2 ML (20 mg) ONE; -HYDROmorphone INJ1* 1 MG/ML SYRINGE IV PRN; -Lactated Ringers 1000 ML Bag* 1,000 ML IV SCH; +Lactated Ringers 1000 ml BAG 1,000 ML IV SCH; +Metoclopramide 5 MG/ML VIAL (10 mg) IV PRN; +NS 0.45% 1000 ml BAG 1,000 ML IV SCH; +Naloxone 0.4 mg VIAL 0.4 mg/ml 1 ml VIAL IV PRN; -Naloxone* 0.4 MG/ML 1 ML VIAL IV PRN; +Ondansetron 4 mg VIAL 2 MG/ML 2 ml VIAL IV PRN; -Ondansetron ODT TAB* 4 MG ONE; -Ondansetron ODT TAB* 4 MG PO ONE; -PROCHLORPERAZINE INJ 5 MG/ML 2 ML VIAL IV PRN; -Ropivacaine 0.2% * 2 MG/ML VIAL ONE; +Scopolamine 1 mg/72hr PATCH TRANSDERM ONE; +fentaNYL 100 mcg/2 ml 50 MCG/ML VIAL IV PRN; -fentaNYL* 50 MCG/ML 2 ML VIAL (100 MCG VIAL) IV PRN; -oxyCODONE TAB* 5 MG TAB PO PRN
[2023-11-05] MEDS ORDERED: ceFAZolin 2 GM in NS PREMIX 2 GM/100 ML BAG IVPB ONE (08:36)
[2023-11-05] MEDS ORDERED: Tranexamic Acid 1 GM/100ML BAG 2,000 MG/200 ML BAG IV ONE (08:36)
[2023-11-05 08:52] LABS: Rapid COVID-19 Molecular Undetected (Undetected)
[2023-11-05] MEDS ORDERED: Midazolam 2 mg/2 ml VIAL 1 mg/ml 2 ml VIAL (2 mg) ONE (09:01)
[2023-11-05] MEDS ORDERED: Lidocaine 2% PF 5 ML VIAL ONE (09:21)
[2023-11-05] MEDS ORDERED: Propofol 0 MG/0 ML BTL ONE (09:35)
[2023-11-05] MEDS ORDERED: Ropivacaine 5 MG/ML 20 ML VIAL 0.5% (100 MG) ONE (10:24)
[2023-11-05] MEDS ORDERED: Propofol 10 MG/ML 20 ML BTL ONE (10:50)
[2023-11-05] MEDS ORDERED: Ondansetron 4 mg VIAL 2 MG/ML 2 ml VIAL ONE (11:22)
[2023-11-05] MEDS ORDERED: Dexamethasone IV 4 MG/ML VIAL 1 ml VIAL ONE (11:22)
[2023-11-05] MEDS ORDERED: Morphine 2 MG/ML SYRINGE IV PRN (13:11)
[2023-11-05] MEDS ORDERED: Magnesium Hydroxide LIQ 30 ML UDC PO PRN (13:11)
[2023-11-05] MEDS ORDERED: Ondansetron ODT 4 mg TAB 4 MG TAB PO PRN (13:11)
[2023-11-05] MEDS ORDERED: Ondansetron 4 mg VIAL 2 MG/ML 2 ml VIAL IV PRN (13:11)
[2023-11-05] MEDS ORDERED: Lactulose 30 ml UDC PO PRN (13:11)
[2023-11-05] MEDS: Lactated Ringers 1000 ml BAG 1,000 ML IV SCH (19:05)
[2023-11-05] MEDS: ceFAZolin 2 GM in NS PREMIX 2 GM/100 ML BAG IVPB SCH (19:57)
[2023-11-05] MEDS: Magnesium Hydroxide LIQ 30 ML UDC PO SCH (21:05)
[2023-11-06 06:38] LABS: Hematocrit 36.1 % (38-53); Hemoglobin 12.4 g/dL (13.2-16.3); Mean Platelet Volume 6.4 fL (7.5-11.2); Platelet Count 311 10^3/uL (150-450)
[2023-11-06 06:53] LABS: Calcium 8.4 mg/dL (8.6-10.3); Creatinine, Serum 1.06 mg/dL (0.67-1.17); Potassium 4.4 mmol/L (3.5-5.0); eGFR CKD-EPI 82.4 (>60)
[2023-11-06] MEDS: Vitamin THERAPEUTIC TAB PO SCH (09:15)
[2023-11-06 10:19] VITALS: BP 141/82
== END 2023-11-06 12:52 | disposition home or self-care (01) ==
LOC: OR 08:18 → SSU 08:18
PROVIDERS: ADMIT Orthopaedic Surgery Adult Reconstructive Orthopaedic Surgery; ATTEND Orthopaedic Surgery Adult Reconstructive Orthopaedic Surgery

== ENCOUNTER 2024-02-29 11:51 | Observation (INO) ==
[~2024-02-29 11:51] MED LIST changes: -Acetaminophen IV 1 GM/100ML 1,000 MG/100 ML BAG IV ONE; -Buffered Lidocaine 1% SYRIN 1 ml INTRADERM ONE; -Lactated Ringers 1000 ml BAG 1,000 ML IV SCH; +ROPIVACAINE 5 MG/ML 30 ML BTL (0.5%) ONE; -Scopolamine 1 mg/72hr PATCH TRANSDERM ONE
[2024-02-29] MEDS: Buffered Lidocaine 1% SYRIN 1 ml INTRADERM ONE (12:23)
[2024-02-29] MEDS ORDERED: ceFAZolin 2 GM PREMIX 2 GM/50 ML BAG ONE (12:29)
[2024-02-29] MEDS ORDERED: Tranexamic Acid 1 GM/100ML BAG 2,000 MG/200 ML BAG IV ONE (12:29)
[2024-02-29] MEDS ORDERED: fentaNYL 100 mcg/2 ml 50 MCG/ML VIAL ONE (12:36)
[2024-02-29] MEDS ORDERED: Midazolam 2 mg/2 ml VIAL 1 mg/ml 2 ml VIAL (2 mg) ONE ×2 (12:37→14:21)
[2024-02-29 12:38] LABS: Rapid COVID-19 Molecular Undetected (Undetected)
[2024-02-29] MEDS ORDERED: Rocuronium 50 mg VIAL 10 mg/ml 5 ml VIAL (50 mg) ONE (12:38)
[2024-02-29] MEDS: Acetaminophen IV 1 GM/100ML 1,000 MG/100 ML BAG IV ONE (12:48)
[2024-02-29] MEDS: Scopolamine 1 mg/72hr PATCH TRANSDERM ONE (12:49)
[2024-02-29] MEDS: Lactated Ringers 1000 ml BAG 1,000 ML IV SCH ×2 (12:49→18:31)
[2024-02-29] MEDS ORDERED: KETAMINE HCL 10 MG/ML 20 ml VIAL (200 MG) ONE (14:27)
[2024-02-29] MEDS ORDERED: Ondansetron 4 mg VIAL 2 MG/ML 2 ml VIAL IV PRN (15:08)
[2024-02-29] MEDS ORDERED: Ondansetron ODT 4 mg TAB 4 MG TAB PO PRN (15:08)
[2024-02-29] MEDS ORDERED: Calcium Carb (TUMS) 500 mg CHEW TAB PO PRN (15:08)
[2024-02-29] MEDS ORDERED: Magnesium Hydroxide LIQ 30 ML UDC PO PRN (15:08)
[2024-02-29] MEDS ORDERED: Morphine 2 MG/ML SYRINGE IV PRN (15:08)
[2024-02-29] MEDS ORDERED: Lactulose 30 ml UDC PO PRN (15:08)
[2024-02-29] MEDS: Magnesium Hydroxide LIQ 30 ML UDC PO SCH (21:45)
[2024-02-29] MEDS: ceFAZolin 2 GM PREMIX 2 GM/50 ML BAG IV SCH (22:44)
[2024-03-01 08:53] LABS: Hematocrit 33.2 % (38-53); Hemoglobin 11.4 g/dL (13.2-16.3); Mean Platelet Volume 6.1 fL (7.5-11.2); Platelet Count 277 10^3/uL (150-450)
[2024-03-01] MEDS: Vitamin THERAPEUTIC TAB PO SCH (08:55)
[2024-03-01 09:33] LABS: Calcium 8.4 mg/dL (8.6-10.3); Creatinine, Serum 1.08 mg/dL (0.67-1.17); Potassium 4.2 mmol/L (3.5-5.0); eGFR CKD-EPI 80.5 (>60)
[2024-03-01 10:10] VITALS: BP 133/81
== END 2024-03-01 13:10 | disposition home or self-care (01) ==
LOC: OR 11:51 → SSU 11:51
PROVIDERS: ADMIT Orthopaedic Surgery Adult Reconstructive Orthopaedic Surgery; ATTEND Orthopaedic Surgery Adult Reconstructive Orthopaedic Surgery